=== PATIENT | male | born 1935 | race Hispanic/Latino ===

== ENCOUNTER 2023-07-23 05:15 | Inpatient (IN) | payer MEDICARE ==
[2023-07-23] MEDS ORDERED: Dexamethasone 10 MG/ML VIAL ONE (06:15)
[2023-07-23] MEDS ORDERED: Magnesium 2 GM/50 ML BAG (IN WATER) ONE (06:16)
[2023-07-23 06:28] LABS: #Eosinphils 0.2 thou/uL (0.0-0.7); #Monocytes 1.1 thou/uL (0.11-0.59); #Neutrophils 4.3 thou/uL (1.40-6.50); %Basophils 0.5 % (0.0-1.0); %Eosinophils 3.6 % (0.0-10.0); %Lymphocytes 8.6 % (21.0-51.0); %Monocytes 17.1 % (0.0-10.0); %Neutrophils 69.7 % (42.0-75.0); Hematocrit 38.4 % (42.0-52.0); Hemoglobin 12.9 g/dL (14.0-18.0); Mean Corpuscular HGB CONC 33.6 g/dL (32.0-36.0); Mean Corpuscular Hemoglobin 29.6 pg (27.0-31.0); Mean Corpuscular Volume 88.1 fl (78.0-98.0); Mean Platelet Volume 9.5 fL (7.4-10.4); Platelet Count 222 10x3/uL (130-400); RBC Distribution Width 12.9 % (11.5-14.5); Red Blood Cell (RBC) Count 4.36 mill/uL (4.70-6.10); White Blood Cell (WBC) Count 6.1 10x3/uL (4.8-10.8)
[2023-07-23 06:57] LABS: ALT (SGPT) 12 U/L (8-55); AST (SGOT) 14 U/L (5-34); Albumin 4.7 g/dL (3.4-4.8); Alkaline Phosphatase 92 U/L (40-110); Anion Gap 13 mmol/L (10-20); BUN (Urea Nitrogen) 7 mg/dL (8.4-25.7); Bilirubin, Total 0.4 mg/dL (0.2-1.2); Calc. Creatinine Clearance 0 mL/min (70-130); Calcium 9.5 mg/dL (7.8-10.44); Carbon Dioxide 28 mmol/L (23-31); Chloride 95 mmol/L (98-107); Estimated GFR 87; Globulin 3.4 g/dL (2.4-3.5); Glucose 125 mg/dL (83-110); Lipase 5 U/L (8-78); Potassium 3.9 mmol/L (3.5-5.1); Protein, Total 8.1 g/dL (5.8-8.1); Sodium 132 mmol/L (136-145)
[2023-07-23 07:01] LABS: Troponin I Less than 0.010 ng/mL (< 0.028)
[2023-07-23] MEDS ORDERED: Ipratropium Bromide 2.5 ml Neb ONE (07:04)
[2023-07-23] MEDS ORDERED: Albuterol 2.5 MG/0.5 ML NEB ONE (07:05)
[2023-07-23 07:58] LABS: SARS-CoV-2 NAA Rapid Test DETECTED (NotDetected)
[2023-07-23 09:17] LABS: Bacteria/HPF None Seen HPF (None Seen); Bilirubin Negative (Negative); Blood, Urine Negative (Negative); CAUTI Indications for Culture Fever or rigors; Clarity Clear (Clear); Glucose, Urine (Dipstick) Normal (Negative); Ketone, Urine Negative (Negative); Leukocyte Negative Leu/uL (Negative); Nitrite Negative (Negative); Protein, Urine (Dipstick) Negative (Neg-Trace); RBC/HPF 0-3 HPF (0-3); Specific Gravity, Urine 1.033 (1.002-1.036); Squamous Epithelial None Seen HPF (0-3); Urobilinogen Normal mg/dL (Less than 2); WBC/HPF 0-3 HPF (0-3)
[2023-07-23 09:18] LABS: Urine Culture Reflex No No
[2023-07-23 10:36] LABS: Troponin I Less than 0.010 ng/mL (< 0.028)
[2023-07-23] MEDS ORDERED: Glucagon 1 MG/ML KIT IM PRN (11:17)
[2023-07-23] MEDS ORDERED: Senokot S 8.6-50 MG TAB PO PRN (11:17)
[2023-07-23] MEDS ORDERED: Dextrose 5% in Water 1,000 ML IV PRN (11:17)
[2023-07-23] MEDS ORDERED: Acetaminophen 650 MG Suppository PR PRN ×2 (11:17)
[2023-07-23] MEDS ORDERED: Acetaminophen 325 MG TAB PO PRN ×2 (11:17)
[2023-07-23] MEDS ORDERED: HumaLOG 300 UNITS/3 ML VIAL SC PRN ×2 (11:17)
[2023-07-23] MEDS ORDERED: Ondansetron PF 4 MG/2 ML Vial IVP PRN (11:17)
[2023-07-23] MEDS ORDERED: Ondansetron ODT 4 MG TAB PO PRN (11:17)
[2023-07-23] MEDS ORDERED: Albuterol 200 PUFF (6.7GM INHALER) INH PRN (11:17)
[2023-07-23] MEDS ORDERED: Dextrose 50% Abboject 50 ML SYRINGE SLOW IVP PRN (11:17)
[2023-07-23] MEDS ORDERED: Sodium Chloride 0.9% 1,000 ML IV SCH (11:30)
[2023-07-23 13:05] LABS: Troponin I Less than 0.010 ng/mL (< 0.028)
[2023-07-23] MEDS ORDERED: Iopamidol-370 76% 500 ML MDV (1 ML CHARGE) ONE (14:31)
[2023-07-23 16:25] VITALS: BMI 28.6
[2023-07-23] MEDS: Benzonatate 100 MG CAP PO PRN (16:54)
[2023-07-23] MEDS: Famotidine 20 MG TAB PO SCH (20:33)
[2023-07-23] MEDS: Atorvastatin Calcium 10 MG TAB PO SCH (20:36)
[2023-07-24 05:29] LABS: #Monocytes 0.7 thou/uL (0.11-0.59); #Neutrophils 2.9 thou/uL (1.40-6.50); %Lymphocytes 15.7 % (21.0-51.0); %Monocytes 17.1 % (0.0-10.0); Hemoglobin 11.6 g/dL (14.0-18.0); Mean Corpuscular HGB CONC 33.1 g/dL (32.0-36.0); Mean Corpuscular Hemoglobin 29.1 pg (27.0-31.0); Mean Corpuscular Volume 87.9 fl (78.0-98.0); Mean Platelet Volume 9.4 fL (7.4-10.4); Platelet Count 213 10x3/uL (130-400); RBC Distribution Width 12.7 % (11.5-14.5); Red Blood Cell (RBC) Count 3.98 mill/uL (4.70-6.10); White Blood Cell (WBC) Count 4.3 10x3/uL (4.8-10.8)
[2023-07-24 06:17] LABS: ALT (SGPT) 11 U/L (8-55); AST (SGOT) 16 U/L (5-34); Albumin 3.9 g/dL (3.4-4.8); Alkaline Phosphatase 69 U/L (40-110); Anion Gap 13 mmol/L (10-20); BUN (Urea Nitrogen) 9 mg/dL (8.4-25.7); Bilirubin, Total 0.3 mg/dL (0.2-1.2); CRP (Inflammatory) 5.36 mg/dL (= or < 0.5); Calc. Creatinine Clearance 89 mL/min (70-130); Calcium 8.3 mg/dL (7.8-10.44); Carbon Dioxide 25 mmol/L (23-31); Chloride 98 mmol/L (98-107); Estimated GFR 90; Globulin 2.9 g/dL (2.4-3.5); Glucose 137 mg/dL (83-110); Potassium 3.9 mmol/L (3.5-5.1); Protein, Total 6.8 g/dL (5.8-8.1); Sodium 132 mmol/L (136-145)
[2023-07-24] MEDS: Aspirin 81 mg Enteric Coated Tablet PO SCH (09:45)
[2023-07-24] MEDS: Losartan 25 MG TAB PO SCH (09:45)
[2023-07-24] MEDS: Amlodipine 10 MG TAB PO SCH (09:46)
[2023-07-24] MEDS: Zinc Sulfate 220 MG CAP PO SCH (09:46)
[2023-07-24] MEDS: Cholecalciferol (Vitamin D3) 400 UNITS TAB PO SCH (09:47)
[2023-07-24] MEDS: Famotidine 20 MG TAB PO SCH ×2 (09:47→22:12)
[2023-07-24] MEDS: Ascorbic Acid 500 mg Chewable Tablet PO SCH (09:47)
[2023-07-24] MEDS: Dexamethasone 10 MG/ML VIAL SLOW IVP SCH (09:47)
[2023-07-24] MEDS: Benzonatate 100 MG CAP PO PRN (10:07)
[2023-07-24] MEDS ORDERED: Benzonatate 100 MG CAP PO PRN (12:16)
[2023-07-24] MEDS: Carvedilol 25 MG TAB PO SCH (22:12)
[2023-07-24] MEDS: Atorvastatin Calcium 10 MG TAB PO SCH (22:12)
[2023-07-25 05:36] LABS: #Monocytes 0.7 thou/uL (0.11-0.59); #Neutrophils 3.8 thou/uL (1.40-6.50); %Lymphocytes 17.2 % (21.0-51.0); %Monocytes 13.2 % (0.0-10.0); %Neutrophils 69.2 % (42.0-75.0); Hematocrit 37.3 % (42.0-52.0); Hemoglobin 12.7 g/dL (14.0-18.0); Mean Corpuscular Hemoglobin 29.4 pg (27.0-31.0); Mean Corpuscular Volume 86.3 fl (78.0-98.0); Mean Platelet Volume 9.4 fL (7.4-10.4); Platelet Count 238 10x3/uL (130-400); RBC Distribution Width 12.6 % (11.5-14.5); Red Blood Cell (RBC) Count 4.32 mill/uL (4.70-6.10); White Blood Cell (WBC) Count 5.5 10x3/uL (4.8-10.8)
[2023-07-25 06:09] LABS: ALT (SGPT) 15 U/L (8-55); AST (SGOT) 31 U/L (5-34); Albumin 4.2 g/dL (3.4-4.8); Alkaline Phosphatase 69 U/L (40-110); Anion Gap 12 mmol/L (10-20); BUN (Urea Nitrogen) 12 mg/dL (8.4-25.7); Bilirubin, Total 0.3 mg/dL (0.2-1.2); Calc. Creatinine Clearance 86 mL/min (70-130); Calcium 8.9 mg/dL (7.8-10.44); Carbon Dioxide 27 mmol/L (23-31); Chloride 97 mmol/L (98-107); Estimated GFR 89; Globulin 3.1 g/dL (2.4-3.5); Glucose 119 mg/dL (83-110); Potassium 3.8 mmol/L (3.5-5.1); Protein, Total 7.3 g/dL (5.8-8.1); Sodium 132 mmol/L (136-145)
[2023-07-25] MEDS: Benzonatate 100 MG CAP PO PRN (09:11)
[2023-07-25] MEDS: Famotidine 20 MG TAB PO SCH (09:11)
[2023-07-25] MEDS: metFORMIN 500 MG TAB PO SCH ×2 (09:11→18:18)
[2023-07-25] MEDS: Ascorbic Acid 500 mg Chewable Tablet PO SCH (09:11)
[2023-07-25] MEDS: Carvedilol 25 MG TAB PO SCH (09:11)
[2023-07-25] MEDS: Cholecalciferol (Vitamin D3) 400 UNITS TAB PO SCH (09:11)
[2023-07-25] MEDS: Amlodipine 10 MG TAB PO SCH (09:12)
[2023-07-25] MEDS: Zinc Sulfate 220 MG CAP PO SCH (09:13)
[2023-07-25] MEDS: Dexamethasone 10 MG/ML VIAL SLOW IVP SCH (09:13)
[2023-07-25] MEDS: Losartan 25 MG TAB PO SCH (09:13)
[2023-07-25] MEDS: Aspirin 81 mg Enteric Coated Tablet PO SCH (09:13)
[2023-07-25 16:59] VITALS: BP 175/85; TEMP 99
== END 2023-07-24 18:10 | disposition home or self-care (01) | DRG 177 ==
LOC: ERS 05:15 → INTOOBSV 09:36 → ERHOLD 09:36 → 2SE 15:43 → OBSVTOIN 07-24 12:05
PROVIDERS: ADMIT Internal Medicine; ATTEND Hospitalist
PROC: 3E0333Z Introduction of Anti-inflammatory into Peripheral Vein, Percutaneous Approach (ICD-10-PCS; principal; 2023-07-24)
PROC: 8E0ZXY6 Isolation (ICD-10-PCS; 2023-07-24)
DX: U07.1 COVID-19 (principal); J12.82 Pneumonia due to coronavirus disease 2019; J96.01 Acute respiratory failure with hypoxia; I10 Essential (primary) hypertension; E78.5 Hyperlipidemia, unspecified; I25.10 Atherosclerotic heart disease of native coronary artery without angina pectoris; E11.9 Type 2 diabetes mellitus without complications; Z95.1 Presence of aortocoronary bypass graft
CPT/HCPCS: 36415; 36416; 71045; 71275; 80053; 81001; 83605; 83690; 83880; 84484; 85025; 85379; 86140; 87040; 93005; 94640; 96365; 96375; J1100; J1650; J1815; J3475; J7050; J7611; Q9967